=== PATIENT | female | born 2000 | race African-American/Black ===

== ENCOUNTER 2020-11-03 12:36 | Emergency (ER) | payer OTHER, MEDICAID ==
[~2020-11-03] VITALS: Ht 157.5 cm; Wt 97.5 kg
[~2020-11-03 12:36] MED LIST: KEFLEX500 MG PO
[2020-11-03 13:51] VITALS: BP 120/78
== END 2020-11-03 13:52 | disposition home or self-care (01) ==
LOC: M.ERS 12:36
DX: S61.214A Laceration without foreign body of right ring finger without damage to nail, initial encounter (principal); S61.216A Laceration without foreign body of right little finger without damage to nail, initial encounter; W25.XXXA Contact with sharp glass, initial encounter; Y93.89 Activity, other specified; Y92.89 Other specified places as the place of occurrence of the external cause; Y99.8 Other external cause status